=== PATIENT | female | born 1995 | race African-American/Black ===

== ENCOUNTER 2018-01-03 14:04 | Emergency (ER) | payer OTHER ==
[2018-01-03 14:31] VITALS: BP 135/74
--- NOTE | 2018-01-03 14:36 | UC ---
Upper Extremity HPI - HPI Summary HPI Summary: pt states she raised her arm to hit a birdie during [email or web address] and "felt my shoulder pop out". pt demonstrates anterior. she wiggled the shoulder and notes "it popped" and went back in. a school associate trainer gave the pt a sling which she must return and refer for evaluation. pt not an athlete thus associate trainer not allowed to evaluate her injury. her r shoulder has some generalized soreness. pt notes she has some numbness in that hand after but not now. - History of Current Complaint Stated Complaint: RIGHT SHOULDER INJURY Time Seen by Provider: 01/03/18 14:23 Hx Obtained From: Patient Onset/Duration: Sudden Onset Aggravating Factor(s): Movement Alleviating Factor(s): Rest - Allergies/Home Medications Allergies/Adverse Reactions: Allergies Allergy/AdvReac Type Severity Reaction Status Date / Time No Known Allergies Allergy Verified 01/03/18 14:31 Home Medications: Home Medications Inplanon IMPLANT DAILY 01/03/18 [History] Lisdexamfetamine Dimesylate [Vyvanse] 30 mg PO DAILY 01/03/18 [History Confirmed 01/03/18] PMH/Surg Hx/FS Hx/Imm Hx - Additional Past Medical History Additional PMH: Fibromyalgia Review of Systems Constitutional: Negative Skin: Negative Eyes: Negative ENT: Negative Respiratory: Negative Cardiovascular: Negative Gastrointestinal: Negative Genitourinary: Negative Motor: Negative Neurovascular: Negative Musculoskeletal: Other: - R shoulder pain Neurological: Negative Psychological: Negative Is Patient Immunocompromised?: No All Other Systems Reviewed And Are Negative: Yes Physical Exam Triage Information Reviewed: Yes Appearance: Well-Appearing Vital Signs Reviewed: Yes Eye Exam: Normal ENT: Positive: Normal ENT inspection Neck: Positive: Supple, Nontender Respiratory: Positive: Lungs clear, Normal breath sounds Cardiovascular: Positive: RRR, No Murmur Abdomen Description: Positive: Nontender, No Organomegaly, Soft Bowel Sounds: Positive: Present Musculoskeletal: Positive: Other: - RUE: sling, shoulder has generalized tenderness. limited active and passive rom due to generalized shoulder pain. + apprehension with minimal anterior stress to shoulder. area below is atraumatic with full s/v/m function. 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 xray is unremarkable. will sling and refer to orthopedics. - Differential Dx/Diagnosis Provider Diagnoses: Acute R shoulder pain. Possible subluxation or dislocation ( reduced fishing boat captain)by hx Discharge - Discharge Plan Condition: Stable Disposition: HOME Prescriptions: Naproxen [Naprosyn] 500 mg PO BID #10 tablet Patient Education Materials: Shoulder Dislocation (ED), How to Use a Sling (ED) Referrals: Gonzalo Ayala MD [Medical Doctor] - As Soon As Possible Additional Instructions: SLING UNTIL CLEARED
[2018-01-03] MEDS ORDERED: Ibuprofen TAB* 600 MG PO ONE (14:41)
--- NOTE | 2018-01-03 15:30 | RAD ---
Indication: Pain post dislocation and relocation. Comparison: No relevant prior exams available on the [facility] for comparison. Technique: Internal rotation AP, external rotation Grashey, scapular Y, axillary views RIGHT shoulder Report: Normal acromioclavicular and glenohumeral joint alignment. No cortical disruption or suspicious trabecular irregularity to suggest fracture. Preserved joint spaces. Unremarkable soft tissue contours. IMPRESSION: Negative radiographic exam of the RIGHT shoulder. No Hill-Sachs impaction fracture or other traumatic finding evident.
== END 2018-01-03 15:43 | disposition home or self-care (01) ==
LOC: UCCORT 14:04
DX: M25.511 Pain in right shoulder (principal); X50.0XXA Overexertion from strenuous movement or load, initial encounter; Y93.69 Activity, other involving other sports and athletics played as a team or group
CPT/HCPCS: 99203; A9270-GY; G0463

== ENCOUNTER 2019-02-09 08:19 | Emergency (ER) | payer OTHER ==
[2019-02-09 08:49] VITALS: BP 131/67
--- NOTE | 2019-02-09 09:22 | UC ---
Eye Complaint HPI - HPI Summary HPI Summary: Pt with 24 hours red, itchy left eye with yellow discharge. Slight reddnes right eye. no vison changes. no photophobia. no foerign body sensation or exposure mild nasal congestion, no kam no corrective lenses medications reviewed not - History of Current Complaint Chief Complaint: UCEye Stated Complaint: LT EYE CONCERN Time Seen by Provider: 02/09/19 09:19 Hx Obtained From: Patient Hx Last Menstrual Period: early December ?: No Onset/Duration: Gradual Onset Pain Intensity: 2 - Allergies/Home Medications Allergies/Adverse Reactions: Allergies Allergy/AdvReac Type Severity Reaction Status Date / Time No Known Allergies Allergy Verified 02/09/19 08:49 PMH/Surg Hx/FS Hx/Imm Hx Previously Healthy: Yes - Surgical History Surgical History: Yes Surgery Procedure, Year, and Place: R knee x 2 - Family History Known Family History: Positive: Non-Contributory - Social History Occupation: Student Lives: Dormitory/Roommates Alcohol Use: Occasionally Substance Use Type: None Smoking Status (MU): Never Smoked Tobacco Review of Systems All Other Systems Reviewed And Are Negative: Yes Constitutional: Positive: Negative Skin: Positive: Negative Eyes: Positive: Drainage, Eye Redness. Negative: Blurred Vision, Diplopia, Photophobia Physical Exam - Summary Physical Exam Summary: Vital Signs Reviewed: Yes A+Ox3, no distress Eyes: JAILYN. EOM intact and full, Left: + injected + yellow crust discharge No photophobia b/l , crisp fundoscopic b/l ENT: Hearing grossly normal TM x 2 clear, mild bogginess turbinates, mmoist, uvula midline, no exudate, no erythema Neck: Positive: Supple Respiratory: Positive: No respiratory distress, No accessory muscle use + CTA throughout no w/r Cardiovascular: RRR nl s1, s2 no m/r CBT <2 sec abd soft + BS nt/nd no guarding, no distension Musculoskeletal Exam: CADENA x 4 without difficulty Strength Intact, ROM Intact Neurological: Positive: Alert, + sensation throughout Psychological: Positive: Normal Response To Family Skin: Positive: no rash, no ecchymosis Triage Information Reviewed: Yes Vital Signs: Initial Vital Signs Temp 98.1 F 02/09/19 08:42 Pulse 60 02/09/19 08:42 Resp 16 02/09/19 08:42 BP 131/67 02/09/19 08:42 Pulse Ox 100 02/09/19 08:42 Eye Complaint Course/Dx - Course Course Of Treatment: pt with 24 hours progressive erythema, itch, drainage left eye scant erythema right eye vss pt with boggy turbinates left eye c/w conjunctivitis reviewed hygeine, [place] precaution, abx Pt declined offer to call parent - Differential Dx/Diagnosis Provider Diagnosis: Conjunctivitis Discharge - Sign-Out/Discharge Documenting (check all that apply): Patient Departure All imaging exams completed and their final reports reviewed: No Studies - Discharge Plan Condition: Stable Disposition: HOME Prescriptions: Polymyx/Trimethoprim OPTH* [Polytrim OPHTH*] 2 drop BOTH EYES Q6HR #1 btl Patient Education Materials: Conjunctivitis (ED) Forms: *School Release Referrals: [facility] [Outside] No Primary Care Phys,NOPCP [Primary Care Provider] - Yonathan Castillo MD [Medical Doctor] - Additional Instructions: - apply eye drops to affected every 4 times a day for the next 5 days -okay to alternate ibuprofen (Advil, Motrin) 600mg and tylenol every 3 hours for pain. Take with food - This is very contagious careful and thorough hand washing is very important. If you touch the dropper to your eye, wash with alcohol wipe as instructed - after you have been on eye drops for 2 days, change your pillowcase -contact the compliance review specialist to schedule a follow-up or if you have any questions or concerns - Billing Disposition and Condition Condition: STABLE Disposition: Home
== END 2019-02-09 09:42 | disposition home or self-care (01) ==
LOC: UCCORT 08:19
DX: H10.9 Unspecified conjunctivitis (principal)
CPT/HCPCS: 99212; G0463